=== PATIENT | female | born 1995 | race Caucasian/White ===

== ENCOUNTER → 2017-01-20 | Outpatient (CLI) | payer MEDICAID ==
[~2017-01-20] MED LIST: ALBUTEROL-200 PUFFS/ IH; BACTRIM DS 8001 TAB PO; FLAGYL 250MG.250 MG PO; KEFLEX 500MG.500 MG PO; MOTRIN 400MG.400 MG PO; NICOTINE T21 MG/24 H TD; NOMEDS XX; PERCOCET 5/3251 EACH PO; PREDNISONE 20MG20 MG PO; RANITIDINE150 M1 PO; TESSALON PERLE100 MG PO; TYLENOL COLD; TYLENOL COLD M240 ML PO; ZITHROMAX Z PA250 MG PO
[2017-01-20 10:53] LABS: LYMPH # 2.2 K/mm3 (0.7-4.5); LYMPH % 28.6 % (10-50.0)
[2017-01-20 10:54] LABS: HEMOGLOBIN 13.9 g/dL (12.2-16.2)
[2017-01-20 11:21] LABS: BUN 7 mg/dL (7-18); FREE THYROXIN INDEX 7.2 ug/dl (5.93-13.13)
[2017-01-20 11:22] LABS: GFR (ESTIMATED) 107 ML/MIN (59-)
[2017-01-21 09:37] LABS: FSH 4.2 mIU/mL (.); LH 16.1 mIU/mL (.)
== END ==
LOC: LAB 10:27
PROVIDERS: Nurse Practitioner Obstetrics & Gynecology
DX: N92.6 Irregular menstruation, unspecified (principal)